=== PATIENT | female | born 1980 | race American Indian/Alaskan Native ===

== ENCOUNTER 2016-04-24 23:31 | Inpatient (IN) | payer OTHER ==
[2016-04-25] MEDS ORDERED: VISTARIL PO ONE (01:08)
[2016-04-25 01:12] LABS: Hematocrit 36.1 % (30.3-42.9); Mean Corpuscular HGB Conc 33 % (30-34); Mean Corpuscular Hemoglobin 27 pg (28-32); Mean Corpuscular Volume 80 fl (79-97); Platelet Count 204 K/mm3 (140-440); Red Blood Count 4.51 M/mm3 (3.65-5.03); Red Cell Distribution Width 14.9 % (13.2-15.2); White Blood Count 9.9 K/mm3 (4.5-11.0)
[2016-04-25] MEDS ORDERED: APRESOLINE IV PRN (01:16)
--- NOTE | 2016-04-25 01:16 | Event Note ---
Date: 04/25/16 Pt comes in for r/o labor. She is previous c/s with successful and desires with this gestation. Pt examined at cx is 4/100/0. Pt is refusing c/s at this time except for an emergency for distress. Pt advised of risk of and that this provider and its practice does not do VBACs. Pt still desires and will sign a consent. She understands that if there is distress or need for immediate delivery she will get c/s and she agrees to this. Pt BPs are int he severe range so will admit and start magnesium at this time.
[2016-04-25 01:17] LABS: Bacteria,Urine 3+ /HPF (Negative); Bilirubin,Urine NEG (Negative); Blood,Urine NEG (Negative); Ketones,Urine NEG (Negative); Leukocyte Esterase,Urine NEG (Negative); Mucus,Urine FEW /HPF; Nitrite,Urine NEG (Negative); Protein,Urine <15 mg/dL mg/dL (Negative); Urobilinogen,Urine < 2.0 mg/dL (<2.0); WBC,Urine < 1.0 /HPF (0.0-6.0)
[2016-04-25] MEDS ORDERED: MINERAL OIL PO PRN (01:32)
[2016-04-25] MEDS ORDERED: ePHEDrine SULFATE IV PRN ×2 (01:32→04:11)
[2016-04-25] MEDS ORDERED: SUBLIMAZE IV PRN (01:32)
[2016-04-25] MEDS ORDERED: BRETHINE IVP PRN (01:32)
[2016-04-25] MEDS ORDERED: BRETHINE SUB-Q PRN (01:32)
[2016-04-25] MEDS ORDERED: POLYCILLIN/NS 2 GM/100 ML 2 GM/100 ML BAG IV ONE (01:32)
[2016-04-25 01:35] LABS: Alanine Aminotransferase 11 units/L (7-56)
--- NOTE | 2016-04-25 01:42 | History and Physical Report ---
History of Present Illness Date of examination: 04/25/16 Date of admission: 04/25/16 Chief complaint: contractions History of present illness: Pt presents in active labor. BPs also elevated due to not taking any of her bp meds for the last week. She last saw her provider in [place] at 34wks. She is taking labetalol 100mg po bid. Pt is previous c/s and desires . She refuses repeat c/s unless it is for or maternal indications. Pt understands risk associated with including but not limited to from uterine scar rupture, and hysterectomy for maternal maternal hemorrhage for the uterine rupture. Pt also understands she is at increased risk for abruption again due to her elevated blood pressures and this can also increase risk of uterine scar separation. All of these risk were d/w pt with YESICA Lopez at bedside and expressed understanding. This was prior to any pain mediations being given. Pt does not have records with her. 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: abnormal PAP smear Family/Genetic History: none Social history: no significant social history, single - Obstetrical History Expected Date of Delivery: 04/27/16 Actual Gestation: 39 Week(s) 5 Day(s) : 4 Para: 2 Hx # Term Pregnancies: 2 Spontaneous Abortions: 1 Number of Living Children: 2 Medications and Allergies Allergies Allergy/AdvReac Type Severity Reaction Status Date / Time No Known Allergies Allergy Verified 04/25/16 01:10 Active Meds: Active Medications Hydralazine HCl (Apresoline) 5 mg IV Q30MIN PRN PRN Reason: Blood Pressure Review of Systems All systems: negative - Vital Signs Vital signs: Vital Signs Pulse BP 113 H 183/114 04/25/16 00:17 04/25/16 00:17 Temp Pulse Resp BP Pulse Ox 112 H 170/105 04/25/16 01:25 04/25/16 01:25 - Physical Exam Breasts: Positive: deferred Cardiovascular: Normal S1, Normal S2 Lungs: Positive: Normal air movement Abdomen: Positive: normal appearance, soft, normal bowel sounds. Negative: distention Vagina: Positive: normal moisture - Obstetrical FHR: category 1 Uterine Contraction Pattern: Regular Uterine Tone Measurement Phase: Resting Uterine Contraction Intensity: Moderate Results Result Diagrams: 04/25/16 01:01 02/04/17 01:01 Abnormal lab results 04/25/16 Range/Units 01:01 MCH 27 L (28-32) pg All other labs normal. Assessment and Plan - Patient Problems (1) 39 weeks gestation of Current Visit: Yes Status: Acute (2) Previous delivery affecting Current Visit: Yes Status: Acute Plan to address problem: -desires -risk d/w and questions addressed and answered -will sign (3) Hypertension affecting in third trimester Current Visit: Yes Status: Acute Plan to address problem: -PIH labs pending -no bp meds in > weeks -restart po meds as well as IV meds prn -anticipate delivery -risk of abruption d/w pt
[2016-04-25] MEDS ORDERED: MAGNESIUM SULFATE 4GM/100ML 4 GM/100 ML BAG IV ONE (01:46)
--- NOTE | 2016-04-25 01:53 | Event Note ---
Date: 04/25/16 [facility] labs are normal so pt does not appear to be in pre E just exacerbation of HTN due to no medications for > 1 week. Will still start mag at this time for neruoprotection due to severe range bps a this time. May be due to pain with contractions so will closely monitor.
[2016-04-25] MEDS ORDERED: PITOCin/NS 20 UNIT/1000ML DRIP 20 UNIT/1,000 ML BAG IV SCH (02:00)
[2016-04-25] MEDS ORDERED: PITOCin/NS 30 UNIT/500ML 30 UNIT/500 ML BAG IV SCH (02:00)
[2016-04-25] MEDS ORDERED: MAGNESIUM SULFATE 40GM/1000ML 40 GM/1,000 ML BAG IV SCH (02:00)
[2016-04-25] MEDS: LACTATED RINGERS 1,000 ML IV SCH ×2 (02:22→04:10)
[2016-04-25] MEDS: NORMODYNE PO SCH ×3 (03:35→22:00)
[2016-04-25 04:03] LABS: Lactate Dehydrogenase 270 units/L (91-180)
[2016-04-25] MEDS ORDERED: NARCAN 2 MG/2 ML IV PRN (04:11)
--- NOTE | 2016-04-25 04:11 | Anesthesia Consultation ---
Anesthesia Consult and Med Hx Date of service: 04/25/16 - Airway Anesthetic Teeth Evaluation: Good ROM Head & Neck: Adequate Mental/Hyoid Distance: Adequate Mallampati Class: Class II Intubation Access Assessment: Probably Good - Pulmonary Exam CTA: Yes - Cardiac Exam Cardiac Exam: RRR - Pre-Operative Health Status ASA Pre-Surgery Classification: ASA2 Proposed Anesthetic Plan: Epidural - Pulmonary Hx Asthma: No COPD: No Hx Pneumonia: No - Cardiovascular System Hx Hypertension: Yes - Central Nervous System Hx Seizures: No Hx Psychiatric Problems: No - Endocrine Hx Renal Disease: No Hx End Stage Renal Disease: No Hx Hypothyroidism: No Hx Hyperthyroidism: No - Hematic Hx Anemia: No Hx Sickle Cell Disease: No - Other Systems Hx Alcohol Use: No
--- NOTE | 2016-04-25 04:37 | Progress Note ---
Assessment and Plan - Patient Problems (1) 39 weeks gestation of Current Visit: Yes Status: Acute (2) Previous delivery affecting Current Visit: Yes Status: Acute (3) Hypertension affecting in third trimester Current Visit: Yes Status: Acute Subjective - Subjective Date of service: 04/25/16 Principal diagnosis: 39.5 wks prev c/s wants ; 3+mec;CHTN Interval history: Pt examined and AROM with 3+ mec noted. I d/w that this could be an indication that the baby has been stressed by the labor she has been having and that she should consider c/s at this time if tracing shows signs of distress ie cat 3 tracing. Pt states understanding and agrees with c/s for maternal or reasons. Pt bp has responded to medications and is much improved at this time. Epidural has been placed and pt is comfortable. ISE and IUPC were placed w /o difficulty. Patient reports: no new complaints Objective - Vital Signs Vital Signs: Vital Signs - 12hr 04/25/16 04/25/16 04/25/16 00:17 00:30 01:21 Temperature Pulse Rate 113 H 106 H 109 H Blood Pressure 183/114 169/97 211/106 04/25/16 04/25/16 04/25/16 01:25 01:37 02:04 Temperature Pulse Rate 112 H 114 H 118 H Blood Pressure 170/105 183/107 172/108 04/25/16 04/25/16 04/25/16 02:05 02:27 02:34 Temperature Pulse Rate 122 H 114 H 117 H Blood Pressure 220/132 174/105 161/99 04/25/16 04/25/16 04/25/16 02:35 02:50 03:06 Temperature 98.4 F Pulse Rate 113 H 113 H Blood Pressure 155/84 137/76 04/25/16 04/25/16 04/25/16 03:19 03:35 04:11 Temperature Pulse Rate 107 H 108 H 116 H Blood Pressure 162/93 136/74 144/96 04/25/16 04/25/16 04/25/16 04:19 04:23 04:25 Temperature Pulse Rate 112 H 113 H 113 H Blood Pressure 148/90 161/90 155/89 04/25/16 04/25/16 04:27 04:29 Temperature Pulse Rate 116 H 116 H Blood Pressure 148/82 156/86 - Exam FHR: category 2 Cervical Dilatation: 5.5 Cervical Effacement Percentage: 80 station: -1 - Labs Labs: Abnormal Labs 04/25/16 04/25/16 01:01 01:01 MCH 27 L Creatinine 0.6 L Lactate Dehydrogenase 270 H Laboratory Results - last 24 hr 04/25/16 04/25/16 04/25/16 01:01 01:01 01:01 WBC 9.9 RBC 4.51 Hgb 12.0 Hct 36.1 MCV 80 MCH 27 L MCHC 33 RDW 14.9 Plt Count 204 Creatinine 0.6 L Estimated GFR > 60 Uric Acid 5.0 AST 29 ALT 11 Lactate Dehydrogenase 270 H Urine Color Yellow Urine Turbidity Clear Urine pH 6.0 Ur Specific [place] 1.016 Urine Protein <15 mg/dl Urine Glucose (UA) 150 Urine Ketones Neg Urine Blood Neg Urine Nitrite Neg Urine Bilirubin Neg Urine Urobilinogen < 2.0 Ur Leukocyte Esterase Neg Urine WBC (Auto) < 1.0 Urine RBC (Auto) 1.0 U Epithel Cells (Auto) < 1.0 Urine Bacteria (Auto) 3+ Amorphous Crystals Few Urine Mucus Few Blood Type Antibody Screen 04/25/16 01:30 WBC RBC Hgb Hct MCV MCH MCHC RDW Plt Count Creatinine Estimated GFR Uric Acid AST ALT Lactate Dehydrogenase Urine Color Urine Turbidity Urine pH Ur Specific [place] Urine Protein Urine Glucose (UA) Urine Ketones Urine Blood Urine Nitrite Urine Bilirubin Urine Urobilinogen Ur Leukocyte Esterase Urine WBC (Auto) Urine RBC (Auto) U Epithel Cells (Auto) Urine Bacteria (Auto) Amorphous Crystals Urine Mucus Blood Type A POSITIVE Antibody Screen Negative
[2016-04-25] MEDS: fentaNYL-BUPIV 2 MCG/ML-0.125% 200 MCG/100 ML BAG EPIDURAL SCH ×2 (04:39→07:34)
[2016-04-25] MEDS ORDERED: BICITRA ONE (05:04)
[2016-04-25] MEDS ORDERED: REGLAN ONE (05:05)
[2016-04-25] MEDS ORDERED: ANCEF/STERILE WATER 2 GM/20 ML 2 GM/20 ML SYRINGE IV ONE (05:05)
[2016-04-25] MEDS ORDERED: PEPCID IV ONE ×2 (05:05→05:51)
--- NOTE | 2016-04-25 05:10 | Event Note ---
Date: 04/25/16 Pt noted to have prolonged decel with slow recovery. I d/w that this combined with the fact she has meconium and is remote from delivery warrants c/s at this time as she has failed and is show signs of distress. Pt agrees with rpt cs so will proceed at this time. Consents signed and placed on the chart. With position changes and oxygen, tracing has improved at this time but still Cat II.
[2016-04-25] MEDS ORDERED: NACL 0.9% ONE (05:25)
[2016-04-25] MEDS ORDERED: XYLOCAINE MPF 2% ONE (05:26)
[2016-04-25] MEDS ORDERED: MORPHINE ONE (05:27)
[2016-04-25] MEDS ORDERED: ZOFRAN ONE (05:29)
[2016-04-25] MEDS ORDERED: NEO SYNEPHRINE ONE (05:42)
[2016-04-25] MEDS ORDERED: REGLAN IV ONE (05:51)
[2016-04-25] MEDS ORDERED: BICITRA PO ONE (05:51)
[2016-04-25] MEDS ORDERED: POLYCILLIN/NS 1 GM/50 ML 1 GM/50 ML BAG IV SCH (06:00)
[2016-04-25] MEDS ORDERED: ANCEF/STERILE WATER 2 GM/20 ML 2 GM/20 ML SYRINGE IV NR (06:00)
[2016-04-25] MEDS ORDERED: NACL 0.9% IR ONE (06:00)
[2016-04-25] MEDS ORDERED: WATER FOR IRRIG STERILE IR ONE (06:00)
[2016-04-25] MEDS ORDERED: TORADOL ONE (06:31)
[2016-04-25] MEDS ORDERED: MORPHINE IV PRN (07:06)
[2016-04-25] MEDS ORDERED: TUCKS PAD TP PRN (07:06)
[2016-04-25] MEDS ORDERED: LANSINOH TP PRN (07:06)
[2016-04-25] MEDS ORDERED: NARCAN 0.4 MG/1 ML IV PRN (07:06)
[2016-04-25] MEDS ORDERED: ZOFRAN IV PRN (07:06)
[2016-04-25] MEDS ORDERED: MOTRIN PO PRN (07:06)
--- NOTE | 2016-04-25 07:21 | Operative Report ---
Operative Report Operative Report: Date of procedure: 04/25/2016 Pre-operative diagnosis: 39 weeks gestation Previous section 1 Previous 1 Exacerbation of chronic hypertension Failed intolerance to labor Meconium Post-operative diagnosis: Same plus uterine fibroids Procedure name(s): Repeat low transverse section via Pfannenstiel skin incision Surgeon: Dr. Mayers Hvac Services Professional: Certified surgical scrub library clerical assistant Anesthesia: Epidural EBL: 600 mL Urine output: 25 mL of clear urine Fluids: 1 L Findings: Liveborn female weight 7 lbs. 15 oz. Apgars of 6 and 9 at one and 5 minutes Normal fallopian tubes bilaterally and normal ovaries bilaterally Multiple uterine fibroids ranging in size from a half a centimeter to 2 cm in diameter Indications: Patient presented to triage as an ER drop-in. Patient had care but had not seen a physician since 34 weeks. Patient did not have records. Patient had a history of successful with a 6 pound infant. Patient desired . Patient was counseled regarding the risks benefits and alternatives of versus repeat section. Throughout the course of attempt patient began to have category 2 tracing patient underwent automatic rupture of membranes that yielded 3+ meconium. Patient then was noted to have a category 3 tracing. It was at this point that section was called due to failed and intolerance to labor. Procedure: Patient was taking to the operating room. Patient was then prepped and draped in sterile fashion after anesthesia was found to be adequate. A low transverse skin incision was made with the scalpel through previous incisional scar and carried down to the underlying layer of fascia with the Bovie. The fascia was then incised in the midline and this incision was extended bilaterally with the Bovie. The superior aspect of the fascia was grasped with Patti clamps tented upward and dissected off of the anterior rectus muscles with the scalpel. In similar fashion the inferior aspect of the fascia was grasped with Patti clamps tented upward and dissected off of the anterior rectus muscles. The rectus muscles were then bluntly divided in the midline. The peritoneum was identified and entered into sharply. The Fritz retractor was placed. A lower transverse uterine incision was made with the scalpel and extended bilaterally with the bandage scissors. Entry into the uterus yielded small amount of meconium-stained fluid. The infant's head was then delivered atraumatically. The anterior shoulder and rest of infant delivered without difficulty with the aid of a Kiwi vacuum with 1 pull and 2 applications. The umbilical cord was clamped x2. The cord was cut. The infant was then placed in sterile bassinet. Her blood was not collected. The placenta was manually extracted in its entirety. The uterus was exteriorized and cleared of all clots and debris. The uterine incision was closed using 0 Vicryl in a running locking fashion. Several [id number] sutures were used along the incision line to secure excellent hemostasis. The posterior cul-de-sac was copiously irrigated. The uterus was returned to the abdomen. The gutters were also irrigated. The anterior rectus muscles were reapproximated using 3-0 Vicryl. The anterior rectus fascia was reapproximated using 0 Vicryl in a running fashion. The subcuticular fat was reapproximated using 2-0 Vicryl in a running fashion. The skin was reapproximated with 4-0 Monocryl with a subcuticular stitch. The patient tolerated the procedure well. Sponge lap and needle counts were all correct x3. Patient was taken to the recovery room awake and in stable condition.
[2016-04-25] MEDS ORDERED: PITOCin/NS 20 UNIT/1000ML DRIP 20 UNITS/1,000 ML BAG IV SCH (08:00)
[2016-04-25] MEDS ORDERED: SODIUM CHLORIDE FLUSH SYRINGE 10 ML IV NR (08:00)
[2016-04-25 08:41] LABS: HIV-1 Antigen p24 Non React (Non React); HIVR-1/2 Ab Non React (Non React)
--- NOTE | 2016-04-25 09:53 | Post Anesthesia Evaluation ---
- Post Anesthesia Evaluation Patient Participated: Yes Airway Patent: Yes Stable Respiratory Function: Yes Nausea/Vomiting: No Temp > 96.8F: Yes Pain Manageable: Yes Adequeate Hydration: Yes Anesthesia Complications: No
[2016-04-25] MEDS ORDERED: BENADRYL IV PRN (10:51)
[2016-04-25] MEDS: ANCEF/NS 1 GM/50 ML 1 GM/50 ML BAG IV SCH (14:30)
[2016-04-25] MEDS: TORADOL IV PRN ×2 (17:11→22:00)
[2016-04-25] MEDS ORDERED: D5LR 1,000 ML IV ONE (17:15)
[2016-04-25] MEDS ORDERED: D5LR 1,000 ML IV SCH (19:00)
[2016-04-25 20:33] LABS: Hematocrit 28.5 % (30.3-42.9); Hemoglobin 9.4 gm/dl (10.1-14.3)
[2016-04-26] MEDS: ANCEF/NS 1 GM/50 ML 1 GM/50 ML BAG IV SCH (02:00)
[2016-04-26] MEDS: TORADOL IV PRN ×2 (05:49→12:36)
[2016-04-26] MEDS: NORCO 5/325 PO PRN ×3 (05:53→20:05)
[2016-04-26] MEDS ORDERED: BOOSTRIX IM ONE (07:08)
--- NOTE | 2016-04-26 09:16 | Progress Note ---
Assessment and Plan - Patient Problems (1) delivery delivered Current Visit: Yes Status: Acute (2) Hypertension affecting in third trimester Current Visit: Yes Status: Acute Plan to address problem: apperently resolved, meds stopped--home in AM. If she needs Labe (3) Spinal headache complicating labor and delivery, condition Current Visit: Yes Status: Acute Subjective - Subjective Date of service: 04/26/16 Principal diagnosis: 39.5 wks prev c/s wants ; 3+mec;CHTN Interval history: POD 1 Has severe headache, nurse says lots of fluid from back when spinal-epidural catheter removed--will consult Anesthesia for possible spinal headache and need for blood patch. Doing well otherwise, on Labetolol 200 bid with normal to low BP--will stop this today. She was not on any meds before . Hct 28 No prob, home in AM Patient reports: appetite normal, voiding normally, pain well controlled : doing well Objective - Vital Signs Latest vital signs: Vital Signs Temp Pulse Pulse Pulse Resp BP BP 04/26/16 04:31 97.9 F 105 H 20 04/26/16 04:25 98.6 F 92 H 16 04/26/16 01:00 98.6 F 90 22 04/26/16 00:16 98.0 F 105 H 20 04/25/16 22:00 137/72 04/25/16 19:18 99.4 F 108 H 20 04/25/16 18:14 20 04/25/16 16:20 97.5 F L 101 H 20 140/77 04/25/16 15:53 18 04/25/16 14:00 18 04/25/16 12:00 20 04/25/16 11:54 97.5 F L 95 H 20 124/74 04/25/16 11:01 96 H 135/74 04/25/16 10:00 18 BP 04/26/16 04:31 128/70 04/26/16 04:25 127/72 04/26/16 01:00 140/81 04/26/16 00:16 117/64 04/25/16 22:00 04/25/16 19:18 137/81 04/25/16 18:14 04/25/16 16:20 04/25/16 15:53 04/25/16 14:00 04/25/16 12:00 04/25/16 11:54 04/25/16 11:01 04/25/16 10:00 Intake and Output 04/25/16 04/26/16 04/26/16 22:59 06:59 14:59 Intake Total 740 1200 Output Total 400 1100 Balance 340 100 Intake: IV 500 PITOCin/NS 20 UNIT/1000ML 500 DRIP 20 unit In 1,000 ml @ 125 mls/hr IV DIRECT TANIKA Rx#:[id number] Oral 240 1200 Output: Urine 400 1100 Indwelling Catheter 400 650 Void 450 Other: Total, Intake Amount 240 480 Total, Output Amount 400 450 Voiding Method Toilet # Bowel Movements 0 - Exam Breasts: Present: deferred Abdomen: Present: normal appearance, soft. Absent: tenderness Uterus: Present: firm Extremities: Present: edema (2+) Incision: Present: normal, dry, intact - Labs Labs: Abnormal lab results 04/25/16 Range/Units 19:49 Hgb 9.4 L (10.1-14.3) gm/dl Hct 28.5 L D (30.3-42.9) %
--- NOTE | 2016-04-26 10:40 | Progress Note ---
Subjective Date of service: 04/26/16 Principal diagnosis: s/p after failed Interval history: 35 yo F with cHTN s/p repeat on 04/25/16 for failed . Patient had combined CSE placed. She reports having a headache that started last night but went away with pain meds. Headache came back this morning but is more severe and worse when sitting up. Gets better when laying down. Headache is frontal and sharp. No N/v or fevers or problems with vision. Discussed with patient that she likely has a Post dural puncture or spinal headache. Discussed treatment options and patient would like to go with epidural blood patch. Objective - Constitutional Vitals: Vital Signs - 12hr 04/26/16 04/26/16 04/26/16 00:16 01:00 04:25 Temperature 98.0 F 98.6 F 98.6 F Pulse Rate [ Left] Pulse Rate [ 105 H 90 92 H Right From Monitor] Respiratory 20 22 16 Rate Blood Pressure [Left Arm] Blood Pressure 117/64 140/81 127/72 [Right Arm] 04/26/16 04/26/16 04:31 08:15 Temperature 97.9 F 98.4 F Pulse Rate [ 90 Left] Pulse Rate [ 105 H Right From Monitor] Respiratory 20 20 Rate Blood Pressure 135/86 [Left Arm] Blood Pressure 128/70 [Right Arm] - Labs CBC & Chem 7: 04/25/16 19:49 04/25/16 01:01 Labs: Abnormal lab results 04/25/16 Range/Units 19:49 Hgb 9.4 L (10.1-14.3) gm/dl Hct 28.5 L D (30.3-42.9) %
--- NOTE | 2016-04-26 10:44 | Progress Note ---
Subjective Date of service: 04/26/16 Principal diagnosis: Post Dural Puncture Headache Interval history: Epidural Blood Patch Note: Patient placed in sitting position on stretcher. She was steriley prepped and drapped. 3cc of 1% Lidocaine used for skin. 18 gauge tuoy needle then used at L3 /4 level. JOHN at 6cm. Blood was drawn from right antecubital by nurse Vasques from mother baby in a sterile fashion. 20 cc of autologous blood was then injected into tuoy needle. Patient was then layed flat. Tolerated well. Time Spent: 20 minutes Referring Physician: Dr. Whalen Performing Physician: Dr. Stockton Location: [facility] Objective - Constitutional Vitals: Vital Signs - 12hr 04/26/16 04/26/16 04/26/16 00:16 01:00 04:25 Temperature 98.0 F 98.6 F 98.6 F Pulse Rate [ Left] Pulse Rate [ 105 H 90 92 H Right From Monitor] Respiratory 20 22 16 Rate Blood Pressure [Left Arm] Blood Pressure 117/64 140/81 127/72 [Right Arm] 04/26/16 04/26/16 04:31 08:15 Temperature 97.9 F 98.4 F Pulse Rate [ 90 Left] Pulse Rate [ 105 H Right From Monitor] Respiratory 20 20 Rate Blood Pressure 135/86 [Left Arm] Blood Pressure 128/70 [Right Arm] - Labs CBC & Chem 7: 04/25/16 19:49 04/25/16 01:01 Labs: Abnormal lab results 04/25/16 Range/Units 19:49 Hgb 9.4 L (10.1-14.3) gm/dl Hct 28.5 L D (30.3-42.9) %
--- NOTE | 2016-04-27 08:24 | Progress Note ---
Assessment and Plan Pt gives hx of being on labetalol 100mg po QD during BP range 140-130 over 85 Will restart this today after consult with . FF below umb Lochia scant Incision D&I H&H 9.4/28.5 blood loss related to section Pt is w/o s/sx of anemia Doing well with exception of breast issue noted Will f/ u P; continue pathway Consult and f/u after pt pumps. Subjective - Subjective Date of service: 04/27/16 (pt OK with d/c but is concerned @ NB) Principal diagnosis: Post Dural Puncture Headache; Day # 2 s/p repeat c/s Chronic Htn Patient reports: appetite normal, voiding normally, pain well controlled, ambulating normally [place]: doing well Objective - Vital Signs Latest vital signs: Vital Signs Temp Pulse Pulse Resp BP BP 04/27/16 00:40 98.7 F 74 20 129/86 04/26/16 16:20 99.7 F H 100 H 20 140/85 Intake and Output 04/26/16 04/27/16 04/27/16 22:59 06:59 14:59 Intake Total 480 500 Balance 480 500 Intake: Oral 480 500 Other: Total, Intake Amount 480 500 # Voids Void 1 - Exam Breasts: Present: (pt has a large arean under both arms "fatty tissue" the one on the left appears larger and is more painful to the pt. Provided a pump for after each feed to completely drain breasts. Will observe.) Cardiovascular: Present: Regular rate Lungs: Present: Clear to auscultation Abdomen: Present: normal appearance, soft Uterus: Present: normal, fundal height below umbilicus Extremities: Present: edema Deep Tendon Reflex Grade: Normal +2 Incision: Present: normal, dry, intact
[2016-04-27] MEDS: PERCOCET 5/325 PO PRN ×2 (08:43→15:52)
[2016-04-27] MEDS: FEOSOL PO SCH (08:43)
[2016-04-27] MEDS: MYLICON PO PRN ×2 (08:49→21:30)
[2016-04-27] MEDS ORDERED: NORMODYNE PO SCH (10:00)
[2016-04-27] MEDS: COLACE PO SCH (21:30)
[2016-04-27] MEDS: NORMODYNE PO SCH (21:31)
[2016-04-28] MEDS: PERCOCET 5/325 PO PRN ×2 (00:44→10:26)
--- NOTE | 2016-04-28 08:14 | Progress Note ---
Assessment and Plan Patient doing well, no complaints. desires d/c home today. reviewed medications and plan for f/u in our office 1 week for incision check and b/p check. Lochia scant, incision D&I, b/p improved with po labetalol to 130-140's/ 70's-80's. will d/c home today. - Patient Problems (1) delivery delivered Current Visit: Yes Status: Acute Plan to address problem: f/u in office 1 week for incision check (2) Hypertension affecting in third trimester Current Visit: Yes Status: Acute Plan to address problem: d/c home with rx labetalol f/u in office 1 week (3) Spinal headache complicating labor and delivery, condition Current Visit: Yes Status: Resolved Plan to address problem: resolved after blood patch Subjective - Subjective Date of service: 04/28/16 Principal diagnosis: Day # 3 s/p repeat c/s Chronic Htn, Post Dural Puncture Headache Patient reports: appetite normal, voiding normally, pain well controlled, flatus , bowel movement, ambulating normally, no dizzy ambulation, no nauseated [place]: doing well, nursing well Objective - Vital Signs Latest vital signs: Vital Signs Temp Pulse Pulse Pulse Resp BP BP 04/28/16 04:45 90 20 142/88 04/28/16 00:20 99.2 F 106 H 20 04/27/16 21:31 105 H 134/77 04/27/16 21:05 98.2 F 105 H 18 134/77 04/27/16 17:50 04/27/16 16:10 98 F 80 20 04/27/16 13:28 97.6 F 98 H 20 04/27/16 09:16 99.3 F 108 H 20 04/27/16 08:44 151/97 BP 04/28/16 04:45 04/28/16 00:20 144/86 04/27/16 21:31 04/27/16 21:05 04/27/16 17:50 144/88 04/27/16 16:10 140/82 04/27/16 13:28 142/99 04/27/16 09:16 151/97 04/27/16 08:44 Intake and Output 04/27/16 04/28/16 04/28/16 22:59 06:59 14:59 Intake Total 360 600 Balance 360 600 Intake: Oral 240 Intake, Free Water 120 600 Other: Total, Intake Amount 120 Voiding Method Toilet # Voids Indwelling Catheter 1 Void 1 1 - Exam Breasts: Present: normal, Cardiovascular: Present: Regular rate Lungs: Present: Clear to auscultation, Normal air movement Abdomen: Present: normal appearance, soft Vulva: both: normal Uterus: Present: normal, firm, fundal height at umbilicus Extremities: Present: normal Deep Tendon Reflex Grade: Normal +2 Incision: Present: normal, dry, intact
--- NOTE | 2016-04-28 08:18 | Discharge Summary ---
Providers - Providers Date of Admission: 04/25/16 01:29 Date of discharge: 04/28/16 (desires d/c home today) Attending physician: ASMITA BARRETO Primary care physician: MEDICINE TECH Hospitalization Reason for admission: active labor Delivery: Procedure: repeat low transverse Incision: normal, dry, intact Other procedures: none complications: spinal headache Discharge diagnosis: IUP at term delivered [place] baby: female Hospital course: uncomplicated repeat c/s after unsuccessful LYLA Condition at discharge: Good Disposition: DISCHARGED TO HOME OR SELFCARE - Discharge Diagnoses (1) delivery delivered Status: Acute (2) Hypertension affecting in third trimester Status: Acute (3) Spinal headache complicating labor and delivery, condition Status: Resolved Plan - Discharge Medications Prescriptions: Docusate Sodium [Colace] 100 mg PO BID PRN #60 capsule PRN Reason: Constipation Ferrous Sulfate [Feosol 325 MG tab] 325 mg PO QDAY #30 tablet Ibuprofen [Motrin 800 MG tab] 800 mg PO Q8HR PRN #30 tablet PRN Reason: Pain Labetalol [Normodyne TAB] 100 mg PO BID #60 tablet Labetalol [Normodyne TAB] 200 mg PO BID #60 tablet oxyCODONE /ACETAMINOPHEN [Percocet 5/325] 1 tab PO Q4HR #30 tab Vit-Fe Fumar-FA [ Vitamin] 1 tab PO QDAY #90 tablet - Provider Discharge Summary Activity: routine, no sex for 6 weeks, no heavy lifting 4 weeks, no strenuous exercise Diet: routine Instructions: routine Additional instructions: [] Smoking cessation referral if applicable(refer to patient education folder for contact #) [] Refer to [facility] Booklet Call your doctor immediately for: * Fever > 100.5 * Heavy vaginal bleeding ( >1 pad per hour) * Severe persistent headache * Shortness of breath * Reddened, hot, painful area to leg or breast * Drainage or odor from incision. * Keep incision clean and dry at all times and follow doctor's instructions regarding bathing/showering - Follow up plan Follow up: PRIMARY CARE, [Primary Care Provider] - 7 Days MADAY SIMENTAL CNM [Advanced Practice Nurse] - 7 Days (Congratulations! Please call [phone] to schedule a blood pressure check and incision check appointment in 1 week. Call for any questions or concerns. )
[2016-04-28] MEDS ORDERED: FLUARIX QUAD 2016-2017(36 MOS+) IM ONE (09:00)
[2016-04-28 10:01] VITALS: BP 136/86
[2016-04-28] MEDS: FEOSOL PO SCH (10:03)
[2016-04-28] MEDS: COLACE PO SCH ×2 (10:03→10:04)
[2016-04-28] MEDS: NORMODYNE PO SCH (10:06)
--- NOTE | 2016-05-01 09:09 | Query-Anemia ---
Deatierra Farris Date:_05/01/16 Central Sterile Technician/CDS:Gladys/Cody Fernando____ Phone#:_[phone] Exercise your independent professional judgment when responding to this query. Questions asked do not imply a particular answer is desired or expected. We greatly appreciate your clarification on this issue. Clinical Documentation States: 35 Y/O Female presents in active labor at 39 weeks. Due to Previous , failed , intolerance to labor and meconium a repeat was performed. Clinical Findings Show: 04/25@01:01 04/25@19;49 Hgb 12.0 9.4 Hct: 36.1 28.5 Etiology: [x ] Anemia due to acute blood loss [ ] Anemia due to chronic blood loss [ ] Anemia secondary to ESRD [ ] Anemia secondary to neoplastic disease [ ] Iron deficiency anemia due to malabsorption [ ] GI Bleed from: [ ] Anemia of chronic disease ,Other: [ ] Precipitous Drop in Hemoglobin [ ] Precipitous Drop in Hematocrit [ ] Other: [ ] Unable to determine [ ] Comment/Explanation: Present on Admission: [ ] Yes (Y) [ ] Clinically undeterminable (W) [x ] No (N) Please also document response in your Progress Notes and/or Discharge Summary and indicate if the condition was present on admission. [id number]
== END 2016-04-28 10:40 | disposition home or self-care (01) | DRG 765 ==
LOC: TRG 23:31 → LD 23:56 → TRG 04-25 00:11 → LD 04-25 01:29 → OB 04-25 08:21
PROVIDERS: ADMIT Obstetrics & Gynecology; ATTEND Obstetrics & Gynecology
PROC: 10D00Z1 Extraction of Products of Conception, Low, Open Approach (ICD-10-PCS; principal; 2016-04-25)
PROC: 10907ZC Drainage of Amniotic Fluid, Therapeutic from Products of Conception, Via Natural or Artificial Opening (ICD-10-PCS; 2016-04-25)
PROC: 10H07YZ Insertion of Other Device into Products of Conception, Via Natural or Artificial Opening (ICD-10-PCS; 2016-04-25)
DX: O16.3 Unspecified maternal hypertension, third trimester (principal); D62 Acute posthemorrhagic anemia; Z3A.39 39 weeks gestation of pregnancy; Z37.0 Single live birth; O76 Abnormality in fetal heart rate and rhythm complicating labor and delivery; O77.0 Labor and delivery complicated by meconium in amniotic fluid; O34.13 Maternal care for benign tumor of corpus uteri, third trimester; O34.219 Maternal care for unspecified type scar from previous cesarean delivery; O89.4 Spinal and epidural anesthesia-induced headache during the puerperium; O66.41 Failed attempted vaginal birth after previous cesarean delivery
CPT/HCPCS: 36415; 81001; 82565; 83615; 84450; 84460; 84550; 85014; 85018; 85027; 85660; 86592; 86706; 86762; 86803; 86850; 86900; 86901; 87806; 88307; 90471; 90686; 90715; 99211; A6250; C1765; C9250; G0463; J0290; J0360; J0690; J1200; J1885; J2270; J2370; J2405; J2590; J2765; J3010; J3475; J7120; J7121; Q0177